=== PATIENT | male | born 1975 | race Caucasian/White ===

== ENCOUNTER 2020-07-16 11:21 | Emergency (ER) | payer OTHER | END 2020-07-16 12:20 | disposition home or self-care (01) | LOC: JVIRT 11:21 | DX: Z11.52 Encounter for screening for COVID-19 (principal) | CPT/HCPCS: C9803; G2251-GT; Q3014-GT; U0003 ==

== ENCOUNTER 2022-10-01 04:56 | Day surgery (SDC) | payer OTHER ==
[2022-09-30 11:23] VITALS: BMI 28.0
[2022-10-01 14:29] VITALS: TEMP 97.1
[2022-10-01 14:30] VITALS: PULSE 54
[2022-10-01 14:31] VITALS: BP 120/68; RESP 14
== END 2022-10-01 13:00 | disposition home or self-care (01) ==
LOC: JASU-ENDO 04:56
PROVIDERS: ATTEND Internal Medicine Gastroenterology
PROC: 0DJD8ZZ Inspection of Lower Intestinal Tract, Via Natural or Artificial Opening Endoscopic (ICD-10-PCS; principal; 2022-10-01 11:30)
DX: Z12.11 Encounter for screening for malignant neoplasm of colon (principal); K64.8 Other hemorrhoids